=== PATIENT | female | born 1995 | race Caucasian/White ===

== ENCOUNTER → 2023-08-31 14:46 | Outpatient (CLI) | payer BC, SELFPAY ==
--- NOTE | 2023-08-31 14:48 | DI.US.S_ITS ---
PROCEDURE: US OB >= 14 WEEKS FETUS INDICATIONS: 20 week anatomy scan OUTSIDE/PRIOR DATING DATA: Last menstrual period (LMP): 04/06/2023. LMP-based estimated date of delivery (LETICIA): 01/11/2024. The calculations are made using the clinical LETICIA of 01/11/2024. TECHNIQUE: Real-time scanning was performed of the fetus, with image documentation and biometric measurements. Endovaginal scanning: No COMPARISON: None. FINDINGS: General: A single living intrauterine gestation is present. Presentation: Variable. Placenta: Placental position is anterior , without previa. Amniotic fluid index: 16.6 cm, normal range is 5-24 cm. Single deepest vertical pocket is 6.5 cm. heart rate: 144 beats per minute. Maternal cervical canal: 4.6 cm long. Normal lower limit is 2.5 cm. biometrics: Biparietal diameter: 4.9 cm, 21 week 0 day Head circumference: 18.0 cm, 20 week 3 day Abdominal circumference: 16.7 cm, 21 week 5 day Femur length: 3.1 cm, 19 week 4 day Clinically estimated gestational age: 21 week 0 day Composite gestational age from present scan: 20 week 5 day Estimated weight and percentile: 371 g, 29 percentile Anatomic survey: Neuro: Ventricles are non-dilated at less than 10 mm. Cisterna magna is normal at 3-11 mm. Cerebellum is normal in size and morphology. Nuchal skin fold: Normal at less than 6 mm between 14-21 weeks gestational age. Face: Nose and lips, facial profile are normal. Spine: No evidence for spina bifida. Heart: 4-chambered heart is present, with normal ventricular outflow tracts. Diaphragm: Diaphragm is intact. Stomach: Left-sided stomach is present. Kidneys: No hydronephrosis. Normal is less than 5 mm in 2nd trimester, less than 7 mm in 3rd trimester. Cord: 3-vessel cord has orthotopic insertion. Bladder: Normal in size. Extremities: All 4 extremities identified. IMPRESSION: Single live intrauterine consistent with a 20 week 5 day gestation by ultrasound. Normal anatomic survey Approved by: Vikas Grullon M.D. on 08/31/2023 at 17:48
== END ==
PROVIDERS: Referring Provider Nurse Practitioner Obstetrics & Gynecology; Visit Provider Nurse Practitioner Obstetrics & Gynecology
DX: Z34.92 Encounter for supervision of normal pregnancy, unspecified, second trimester (principal); Z3A.20 20 weeks gestation of pregnancy
CPT/HCPCS: 76811

== ENCOUNTER 2024-01-09 17:51 | Inpatient (IN) | payer BC, SELFPAY ==
--- NOTE | 2024-01-09 18:15 | PM.OBHP.1 ---
OB HPI Date/Time Date of admission: 01/09/24 Date Patient Seen: 01/09/24 Time Patient Seen: 18:17 History of Present Condition Chief complaint: observation of labor : 2 Para: 1 Estimated Date of Delivery: 01/11/24 Estimated Gestational Age (weeks): 39.5 Narrative: Carmen Mason is a 28 year old female @ 39wks 5 days by LMP concordant with 9wk US presenting for evaluation of labor. Contractions started this morning and slowly increased in frequency and intensity, getting strong around 1630. Lots of FM. No vaginal bleeding or leaking of fluid. Uncomplicated care with CNMs. Desires low intervention with an epidural. , Luis, is present and supportive. History of Present care: good care, initiated at week # (10), number of visits (11) and pounds weight gain (27) Dating criteria: LMP confirmed by 1st trimester US Ultrasounds: normal 1st trimester US and normal mid trimester US Obstetrical complications: none Medical complications: none Preadmission Labs Blood type: A (+) positive -: Antibody screen: negative, GBS status: negative, HBsAG: negative, HIV: negative and RPR/VDLR: negative -: Chlamydia screen: not detected and Gonorrhea screen: not detected -: Rubella: immune and Varicella: immune HCT: 34.1 HCAB: negative Cell-free DNA: Negative, XY 1 hr GTT: 111 Prior (ies) History: 01/23/2021: NSVB @ [id number], preeclampsia, 8hr labor, epidural, 7#7oz male Evaluation Evaluation Baseline heart rate: 135 Variability: Moderate (11-25) monitor accelerations: Present Monitor Decelerations: Absent Contraction Frequency (minutes): 3 (3-4) Uterine Contraction Intensity: Moderate Status: Category l Dilation (cm): 5 Effacement (%): 90 Dilation: >/=5 cm Effacement: >/=80% station: -2 Position of cervix: posterior Consistency: soft Villeda score: 9 PFSH Medical History (Updated 01/09/24 @ 18:30 by Kim Mac CNM) HSV-1 infection Social History (Updated 01/09/24 @ 18:31 by Kim Mac CNM) marital status: number of children: 1 household members: spouse lives independently: Yes caregiver/support person: Yes housing: house education level: college occupational status: employed do you feel safe at home: Yes Smoking Status: Never smoker Meds Home Medications and Allergies Home Medications Medication Instructions Recorded Confirmed Type aspirin 81 mg tablet 81 mg PO DAILY 01/09/24 01/09/24 History Allergies Allergy/AdvReac Type Severity Reaction Status Date / Time No Known Drug Allergies Allergy Verified 01/09/24 18:09 Review of Systems Review of Systems ROS: Yes All systems reviewed with the patient and are negative except as otherwise documented OB Exam Vital signs Blood Pressure: 136/85 Pulse Rate: 57 Temperature: 97.2 F Resp Effort & Inspection: normal respiratory effort and able to speak in complete sentences Auscultation: clear to auscultation bilaterally Cardio Rate: regular rate Rhythm: regular rhythm Presentation: vertex Amniotic Fluid: no fluid Objective Labs 01/09/24 18:40 Assessment and Plan Assessment and Plan Assessment and Plan narrative: A: Term primipara Approaching active labor No indication for antibioitcs Cat I FHR P: Admit, routine orders. Labor support PRN. Epidural now. Reassess after epidural placement. Time-Based Coding :: [TOTAL MINUTES] spent with patient and on the chart (including review of chart, obtaining history, exam, reviewing outside data, placing orders, documenting exam and treatment plan, and counseling patient) on [DATE].
[2024-01-09 18:33] VITALS: BP 136/85; PULSE 57; TEMP 36.2
[2024-01-09] MEDS: LACTATED RINGERS 1,000 ML 100 ML IV (18:49)
[2024-01-09 18:54] VITALS: BP 136/86
[2024-01-09 19:01] LABS: Add Manual Diff / Slide Review NO; Basophils Absolute Auto 100 /uL (0-100); Basophils Percent Auto 0.6 % (0-2); Eosinophils Absolute Auto 100 /uL (0-450); Eosinophils Percent Auto 0.6 % (2-4); Hematocrit 35.2 % (36-46); Hemoglobin 11.9 g/dL (12.0-16.0); Lymphocytes Absolute Auto 2500 /uL (1100-4500); Lymphocytes Percent Auto 23.2 % (25-40); Mean Corpuscular HGB Conc 33.7 % (30-36); Mean Corpuscular Hemoglobin 29.1 PG (26-34); Mean Corpuscular Volume 86.3 fL (80-100); Monocytes Absolute Auto 900 /uL (0-900); Monocytes Percent Auto 8.4 % (3-14); Neutrophils Absolute Auto 7100 /uL (1500-7000); Neutrophils Percent Auto 67.2 % (50-75); Platelet Count 149 X10^3/uL (150-400); Red Blood Cell Count 4.08 X10^6/uL (4.0-5.2); Red Cell Distribution Width 13.4 % (11.6-14.8); White Blood Cell Count 10.6 X10^3/uL (4.5-11.0)
--- NOTE | 2024-01-09 19:42 | PM.AN.REGBLK ---
Regional Block Pre-procedure Procedure: Continuous Lumbar Epidural for L&D Attending OB provider: Kim Mac PMH/ROS narrative: 28y/o with benign PMH in spontaneous active labor requests BE for labor pain. PSH/Anesthesia history narrative: Previous labor with lumbar epidural without complications. ASA Class: II Labs: Hct 35.2 % (36-46) L 01/09/24 18:40 Plt Count 149 X10^3/uL (150-400) L 01/09/24 18:40 Medications: Current Medications Generic Name Dose Route Start Last Admin Trade Name Freq PRN Reason Stop Dose Admin Calcium Carbonate 1,000 mg 01/09/24 18:10 Calcium Carbonate 500 Mg Tab PO Q2HR PRN Dyspepsia Carboprost Tromethamine 250 mcg 01/09/24 18:10 Carboprost 250 Mcg/Ml Ampul IM Q90M PRN Bleeding Diphenhydramine HCl 25 mg 01/09/24 19:40 Diphenhydramine 50 Mg/Ml Vial IV Q10M PRN Pruritis Diphenhydramine HCl 25 mg 01/09/24 19:42 Diphenhydramine 50 Mg/Ml Vial IV 01/10/24 19:42 Q3HR PRN PRURITUS Ephedrine Sulfate 10 mg 01/09/24 19:40 Ephedrine 50 Mg/Ml Vial IV Q5M PRN Blood pressure decrease more than 20% of baseline. Oxytocin/Lactated Ringer's 30 unit in 500 mls @ 200 mls/hr 01/09/24 18:10 Oxytocin Premix IV CONT PRN Bleeding Protocol Tranexamic Acid 1,000 mg/ 100 mls @ 600 mls/hr 01/09/24 18:10 Sodium Chloride IV NOW PRN Bleeding Lactated Ringer's 1,000 mls @ 100 mls/hr 01/09/24 18:15 01/09/24 18:49 Lactated Ringers IV 01/10/24 04:14 100 mls/hr CONT ANTHONY Administration FENT 2MCG/ML BUPIV 0.125% EPI 200 mcg in 100 mls @ 8 mls/hr 01/09/24 19:45 Fentanyl/Bupiv/Ns 2mcg/Ml - 0.125% EPIDURAL CONT ANTHONY Lidocaine HCl 20 ml 01/09/24 18:10 Lidocaine 1% 20 Ml INJ INTRA-OP PRN Post Delivery Methylergonovine Maleate 0.2 mg 01/09/24 18:10 Methylergonovine 0.2 Mg Tablet PO Q6HR PRN Heavy Bleeding Methylergonovine Maleate 0.2 mg 01/09/24 18:10 Methylergonovine 0.2 Mg/Ml Vial IM NOW PRN Bleeding Mineral Oil 30 ml 01/09/24 18:10 Mineral Oil 30 Ml Udc TOP PRN PRN Version Misoprostol 800 mcg 01/09/24 18:10 Misoprostol 200 Mcg Tablet [place] NOW PRN Bleeding Misoprostol 400 mcg 01/09/24 18:10 Misoprostol 200 Mcg Tablet SL NOW PRN Bleeding Naloxone HCl 0.2 mg 01/09/24 18:10 Naloxone 0.4 Mg/Ml Vial IV Q2MIN PRN Opiate Reversal Naloxone HCl 0.4 mg 01/09/24 19:42 Naloxone 0.4 Mg/Ml Vial IV Q2MIN PRN Opiate Reversal Ondansetron HCl 4 mg 01/09/24 18:10 Ondansetron 4 Mg/2 Ml Inj IV Q4HR PRN Nausea And Vomiting Oxytocin 10 unit 01/09/24 18:10 Oxytocin 10 Unit/Ml Vial IM NOW PRN Bleeding Allergies: Allergies Allergy/AdvReac Type Severity Reaction Status Date / Time No Known Drug Allergies Allergy Verified 01/09/24 18:09 Procedure Insertion date: 01/09/24 Insertion time: 19:25 Prep/Local: 1% lidocaine (3mL to interspace. CHG to back for skin prep.) Interspace: L4/5 Patient position: sitting Needle: 18 gauge Hustead ((27g Pencan through Hustead for CSE with 1mL 0.25% MPF bupivacaine placed intrathecal)) Loss of resistance with: saline NIK at (cm): 5 Catheter placed at SKIN (cm): 12 Catheter in SPACE (cm): 7 Insertion: No CSF, No Blood, No Paresthesia with insertion, No Paresthesia with injection and No Test dose reaction Initial Medications TEST DOSE time: 19:26 TEST DOSE: 1.5% lidocaine with epinephrine 1:200k (mL): 3 Infusion INFUSION: 0.125% bupivacaine and with fentanyl 2 mcg/mL Initial rate (mL/hr): 10 Post-procedure Anesthesia date START: 01/09/24 Anesthesia time START: 19:18 Anesthesia date END: 01/10/24 Anesthesia time END: 00:19 Post-procedure Anesthesia Assessment: Yes CV function: HR/BP stable, Yes Resp function: RR/sat/airway adequate, Yes Post-op hydration adequate, Yes Pain control adequate, Yes Nausea & vomiting absent, Yes Temperature > 36 C, Yes Mental status appropriate and No Anesthesia complications
--- NOTE | 2024-01-09 20:08 | PM.OBPNLAB ---
Date/Time Date Patient Seen: 01/09/24 Time Patient Seen: 20:00 Pain Control Comments: Epidural placed and providing good pain control for Carmen. After offering AROM and providing risks and benefits, Carmen decides she would like AROM performed. Luis remains supportive at bedside. VS: BP: 130/78 HR: 65 RR: 16 SpO2: 99 Pelvic Exam Dilation (cm): 5.5 Effacement (%): 90 station: -2 Amniotic membrane status: Ruptured (AROM, clear) Contractions Contraction frequency (min): 5 (3-6 mins) Contraction duration (min): 1 (1-2) Contraction pattern: Regular Contraction intensity: Moderate Status status: Category l Heart Rate Baseline: 145 Monitor Accelerations: Present Monitor Decelerations: Absent Monitor Variability: Moderate Comments: Bedside CFM Assessment and Plan Assessment: active labor Plan: begin patient augmentation (AROM performed) Comments: Encourage rest and frequent position changes. Reassess in 4 hours or sooner, PRN.
[2024-01-09] MEDS: FENT 2MCG/ML BUPIV 0.125% EPI 200 MCG/100 ML PLAST..BAG 10 MCG EPIDURAL (23:45)
--- NOTE | 2024-01-10 00:48 | PM.OBPRVD ---
Events: Labor Augmentation (AROM) Labor & Delivery Delivery date: 01/10/24 Intrapartal Events: None Cervical ripening method: none Induction method: none Delivery augmentation: rupture of membranes Delivery monitor: external FHT and external uterine Route of delivery: Episiotomy description: None L&D Laceration Description: None Quantitative Blood Loss: 275 Anesthesia Type: Epidural Narrative: Labor progressed well with no further augmentation. Carmen was found to be complete, complete and started pushing on her L side. She was encouraged to push and had good maternal effort that resulted in a quick and uncomplicated second stage. Head emerged ELFEGO, shoulders and abdomen shortly after, over an intact perineum, vagina and clitoris. Vigorous baby boy was placed on maternal abdomen and Pitocin was started for active management of the 3rd stage. Apgars 9/9. Cord clamping was delayed until there was no longer a pulse at which point it was double clamped by CNM and cut by FOB. Cord blood collected to hold. With gentle downward traction and fundus massage, placenta delivered Zambrano. Apparently intact placenta with a 3 vessel cord. Fundus immediately firm and bleeding scant. Quantified blood loss 275ml. Mother and baby were skin to skin and stable when I left the room. Baby 1: gender: Male Presentation: vertex Position: Left Occiput Anterior Placenta delivery description: Spontaneous Cord Vessel Description: 3 Vessels score (1 min): 9 score (5 min): 9 weight: 3.625 kg Plan for aftercare: Routine care
[2024-01-10] MEDS: LANOLIN OINT 7 GM 1 APPLIC TOP (02:21)
[2024-01-10] MEDS: DERMOPLAST SPRAY 20% 60 ML 1 SPRAY TOP (02:21)
[2024-01-10] MEDS: WITCH HAZEL/GLYCERIN PADS 1 EACH TOP (02:22)
--- NOTE | 2024-01-10 19:45 | PM.OBDS.1 ---
Discharge Providers Provider Date of admission: 01/09/24 17:51 Discharge Date: 01/10/24 Consults: 01/09/24 18:12 Consult to Anesthesiology Urgent Comment: Consulting Provider: Norma Dalton Reason for consultation: Epidural Has provider been notified: No 01/11/24 00:40 Consult to Manager Talent Management Routine Comment: Discharge provider: Kate Schumacher CNM, ARNP Summary Hospital Course Date Patient Seen: 01/10/24 Time Patient Seen: 19:00 Diagnoses: NSVB Hospital Course: Carmen Lee arrived in active labor, got an epidural and progressed well to complete after AROM, clear fluid. Pushed for short 2nd stage, and had viable male infant delivered over intact perineum. EBL 275 mL. Normal course. . Peripartum Data Delivery Method: Natural Vaginal Laceration Description: None Episiotomy description: None Ruston 1: Gender: Male Disposition of : home Status at Discharge Cognitive/behavioral status at discharge: at baseline, oriented Functional status at discharge: independent ambulation Overall status at discharge: patient is progressing back to baseline Time Spent with Patient Time attestation: Total time spent providing and/or coordinating discharge services: Objective Labs 01/09/24 18:40 Exam Vital Signs (past 8 hours): BP 113/63 HR 62 bpm RR 14/min T: 98.2 temporal Other: Fundus firm at U-2, midline. Lochia scant Perineum intact with minimal edema Discharge Plan Discharge Plan Patient Disposition: Home Discharge orders & Medications Prescriptions: Discontinued aspirin 81 mg Tablet 81 mg PO DAILY Follow up/Referrals: Kate Schumacher CNM, ARNP [[employer]] - As previously scheduled (2 week and 6 weeks as scheduled; in e-mail and reviewed. ) Diet/Activity/Treatments Diet: Diet as Tolerated and Regular Diet comment: increase fiber and fluid for good stool and healing Activity: Low ibarra x 2 weeks Cold/Heat Therapy: as needed Skin/Wound/Dressing Care Report to your healthcare provider any signs of infection, such as:: chills, fever, night sweats, increased pain and unusual redness Visit Report/Discharge Packet Stand Alone Forms: Patient Portal/API, Stroke Signs & Symptoms Discharge Data Attending Provider: Kim Mac Admit Date/Time: 01/09/24 17:51
== END 2024-01-10 20:00 | disposition home or self-care (01) | DRG 807 ==
PROVIDERS: Admitting Provider Nurse Practitioner Obstetrics & Gynecology; Referring Provider Nurse Practitioner Obstetrics & Gynecology; Visit Provider Nurse Practitioner Obstetrics & Gynecology
DX: O80 Encounter for full-term uncomplicated delivery (principal); Z37.0 Single live birth; Z3A.39 39 weeks gestation of pregnancy
CPT/HCPCS: 36415; 59050; 85025; 86850; 86900; 86901; G0378; G0379